=== PATIENT | female | born 1960 ===

== ENCOUNTER 2017-08-27 07:34 | Day surgery (SDC) | payer OTHER ==
[2017-08-27 08:14] VITALS: BMI 30.2
[2017-08-27] MEDS ORDERED: Propofol 10 mg/ml Inj (20 ML) ONE (08:43)
[2017-08-27] MEDS ORDERED: Lidocaine Hydrochloride 5 ML INJ ONE (08:43)
[2017-08-27 09:07] VITALS: TEMP 97.4; O2SAT 100
[2017-08-27 09:36] VITALS: BP 117/71; PULSE 58; RESP 14
== END 2017-08-27 09:59 | disposition home or self-care (01) ==
LOC: C.ENDO 07:34
PROVIDERS: ATTEND Internal Medicine
DX: K29.70 Gastritis, unspecified, without bleeding (principal); E11.43 Type 2 diabetes mellitus with diabetic autonomic (poly)neuropathy; K31.84 Gastroparesis; I10 Essential (primary) hypertension; J45.909 Unspecified asthma, uncomplicated
CPT/HCPCS: 43239; 82948; 88305; J2704